=== PATIENT | male | born 1950 | race Hispanic/Latino ===

== ENCOUNTER → 2022-08-19 | Outpatient (CLI) | payer MEDICARE ==
[~2022-08-19] MED LIST: ACETAMINOPHEN325 M1 PO; ALEVE220 MG PO; ATORVASTATIN CA20 MG PO; AZOR 10-40 MG1 EACH PO; FLOMAX0.4 MG PO; GLUCOSAMINE &1 EAC1 PO; ULTRACET TABLE1 EACH PO
== END ==
LOC: MRI 10:16
PROVIDERS: ATTEND Psychiatry & Neurology Neurology
DX: M54.17 Radiculopathy, lumbosacral region (principal)
CPT/HCPCS: 72148